=== PATIENT | male | born 1950 | race Caucasian/White ===

== ENCOUNTER → 2021-04-19 | Outpatient (CLI) | payer MEDICARE, OTHER ==
[~2021-04-19] MED LIST: AMLODIPINE BESYL5 MG PO; BUPROPION HCL100 MG PO; DICLOFENAC GEL TD; ELIQUIS5 MG PO; FENOFIBRATE130 MG PO; HYDROCODON-ACE1 EAC2 PO; METOPROLOL TART25 MG PO; PROTONIX40 MG PO; REVATIO 20 MG T20 MG PO; SIMVASTATIN20 MG PO; SINGULAIR10 MG PO; VENTOLIN HFA 66.7 GM INH
== END ==
LOC: CT 09:00
DX: C32.9 Malignant neoplasm of larynx, unspecified (principal); R91.8 Other nonspecific abnormal finding of lung field
CPT/HCPCS: 70491; 71260; Q9967